=== PATIENT | male | born 1985 | race Caucasian/White ===

== ENCOUNTER 2020-11-02 08:29 | Inpatient (IN) | payer SELFPAY ==
[2020-11-02] MEDS ORDERED: ONDANSETRON 4 MG/2 ML VIAL IVPUSH ONE (08:43)
[2020-11-02] MEDS ORDERED: morphine CARPU-JECT 2 MG/1 ML DISP.SYRIN IVPUSH ONE (08:43)
[2020-11-02] MEDS ORDERED: morphine SULFATE 4 MG/ML VIAL IVPUSH ONE (08:43)
[2020-11-02] MEDS ORDERED: SODIUM CHLORIDE 1,000 ML IV STA (08:46)
[2020-11-02] MEDS ORDERED: ONDANSETRON 4 MG/2 ML VIAL ONE (08:51)
[2020-11-02] MEDS ORDERED: morphine SULFATE 4 MG/ML VIAL ONE (08:51)
[2020-11-02 10:36] LABS: BASO % 0.2 % (0-2.0); EOS % 0.3 % (0-4.5); HEMATOCRIT 42.1 % (35.4-49); HEMOGLOBIN 14.5 GM/dL (11.7-16.9); LYMPH % 11.5 % (8-40); MCH 29.2 pg (25.7-33.7); MCHC 34.5 g/dl (32.0-35.9); MEAN CELL VOLUME 84.5 fl (80-96); MEAN PLT VOLUME 8.4 fl (7.5-11.1); MONO % 6.7 % (3.8-10.2); NEUT % 81.3 % (42.8-82.8); PLATELET COUNT 260 K/MM3 (134-434); RBC 4.98 M/mm3 (4.00-5.60); RDW 13.2 % (11.9-15.9); WHITE BLOOD COUNT 15.6 K/mm3 (4.0-10.0)
[2020-11-02 11:11] LABS: POTASSIUM 4.4 mmol/L (3.5-5.1)
[2020-11-02 11:13] LABS: CALCIUM 8.7 mg/dL (8.5-10.1)
[2020-11-02 11:14] LABS: ALBUMIN 3.6 g/dl (3.4-5.0); BLOOD UREA NITROGEN 10.3 mg/dL (7-18)
[2020-11-02 11:17] LABS: CREATININE 1.1 mg/dL (0.55-1.3)
[2020-11-02 11:18] LABS: BILIRUBIN,TOTAL 0.8 mg/dL (0.2-1); TOT PROT 6.6 g/dl (6.4-8.2)
[2020-11-02 12:13] LABS: EPI CELLS 15 /uL (0-25.1); HYALINE CASTS 2 /uL (0-3.1); URINE APPEARANCE CLEAR; URINE BACTERIA 41 /uL (0-1359); URINE BILIRUBIN NEGATIVE (NEGATIVE); URINE COLOR ORANGE; URINE GLUCOSE (UA) NEGATIVE (NEGATIVE); URINE KETONE NEGATIVE (NEGATIVE); URINE LEUK ESTERASE TRACE (NEGATIVE); URINE NITRITE NEGATIVE (NEGATIVE); URINE PROTEIN TRACE (NEGATIVE); URINE RBC 586 /uL (0-23.9); URINE UROBILINOGEN 0.2 mg/dL (0.2-1.0); URINE WBC 59 /uL (0-25.8)
[2020-11-02] MEDS ORDERED: TAMSULOSIN HCL 0.4 MG CAP PO ONE (12:51)
[2020-11-02] MEDS ORDERED: CEFTRIAXONE 1 GM in DEXTROSE 5%-WATER - 100 ML IVPB ONE (12:51)
[2020-11-02] MEDS ORDERED: TAMSULOSIN HCL 0.4 MG CAP ONE (12:55)
[2020-11-02] MEDS ORDERED: CEFTRIAXONE 1 GM/50 ML BAG ONE (12:56)
[2020-11-02] MEDS ORDERED: SODIUM CHLORIDE 1,000 ML IV SCH (13:00)
[2020-11-02] MEDS ORDERED: MORPHINE SULFATE 2 MG/ML VIAL IVPUSH PRN (13:50)
[2020-11-02] MEDS ORDERED: ACETAMINOPHEN 1000 MG/100 ML VIAL (NON FORMULARY) IVPB PRN (13:51)
[2020-11-02 14:44] LABS: INR 1.11 (0.83-1.09); PROTHROMBIN TIME (PATIENT) 13.4 SEC (9.7-13.0)
[2020-11-02 14:47] LABS: ACTIVATED PTT 30.9 SECONDS (25.2-36.5)
[2020-11-02] MEDS ORDERED: NICOTINE 14 MG/24 HOURS TOPICAL PATCH TD SCH (21:45)
[2020-11-03 08:02] LABS: HEMATOCRIT 44.2 % (35.4-49); HEMOGLOBIN 15.1 GM/dL (11.7-16.9); MCH 29.1 pg (25.7-33.7); MCHC 34.1 g/dl (32.0-35.9); MEAN CELL VOLUME 85.4 fl (80-96); MEAN PLT VOLUME 8.4 fl (7.5-11.1); PLATELET COUNT 265 K/MM3 (134-434); RBC 5.18 M/mm3 (4.00-5.60); RDW 13.5 % (11.9-15.9); WHITE BLOOD COUNT 9.6 K/mm3 (4.0-10.0)
[2020-11-03 08:15] VITALS: BP 134/88; PULSE 90; TEMP 97.9
[2020-11-03] MEDS ORDERED: TAMSULOSIN HCL 0.4 MG CAP PO SCH (08:30)
[2020-11-03] MEDS ORDERED: TAMSULOSIN HCL 0.4 MG CAP ONE (08:31)
[2020-11-03 08:37] LABS: BLOOD UREA NITROGEN 7.1 mg/dL (7-18)
[2020-11-03 08:38] LABS: ALBUMIN 3.8 g/dl (3.4-5.0); CALCIUM 9.2 mg/dL (8.5-10.1)
[2020-11-03 08:39] LABS: MAGNESIUM 2.1 mg/dL (1.8-2.4)
[2020-11-03 08:41] LABS: CREATININE 0.8 mg/dL (0.55-1.3); PHOSPHOROUS 3.2 mg/dL (2.5-4.9)
[2020-11-03 08:42] LABS: BILIRUBIN,TOTAL 1.1 mg/dL (0.2-1); TOT PROT 6.9 g/dl (6.4-8.2)
[2020-11-03] MEDS ORDERED: FAMOTIDINE 20 MG/50 ML IVPB 20 MG/50 ML MG IVPB ONE (09:13)
[2020-11-03] MEDS ORDERED: METOCLOPRAMIDE HCL INJECTION 10 MG/2 ML VIAL ONE (09:13)
[2020-11-03] MEDS ORDERED: CEFTRIAXONE 1 GM in DEXTROSE 5%-WATER - 50 ML IVPB SCH (10:00)
[2020-11-03] MEDS ORDERED: DOCUSATE SODIUM 100 MG CAPSULE (FP) PO SCH (10:00)
== END 2020-11-03 09:45 | disposition left against medical advice (07) | DRG 465 ==
LOC: JER 08:29 → JERBED 13:16
PROVIDERS: ADMIT Internal Medicine; ATTEND Internal Medicine
DX: N13.2 Hydronephrosis with renal and ureteral calculous obstruction (principal); R11.2 Nausea with vomiting, unspecified; I10 Essential (primary) hypertension; K40.90 Unilateral inguinal hernia, without obstruction or gangrene, not specified as recurrent
CPT/HCPCS: 36415; 74176-TC; 76775-TC; 76856-TC; 80053; 81003; 83735; 84100; 85025; 85027; 85610; 85730; 86850; 86900; 86901; 87086; 99285-25; C9803; U0003

== ENCOUNTER 2021-02-01 11:59 | Emergency (ER) | payer SELFPAY ==
[2021-02-01] MEDS ORDERED: KETOROLAC TROMETHAMINE 30 MG/1 ML VIAL IVPUSH ONE (12:29)
[2021-02-01] MEDS ORDERED: SODIUM CHLORIDE 0.9% 500 ML INFUS.BAG IV ONE (12:29)
[2021-02-01] MEDS ORDERED: ONDANSETRON 4 MG/2 ML VIAL IVPUSH ONE (12:29)
[2021-02-01] MEDS ORDERED: ONDANSETRON 4 MG/2 ML VIAL ONE (12:52)
[2021-02-01] MEDS ORDERED: KETOROLAC TROMETHAMINE 30 MG/1 ML VIAL ONE (12:52)
[2021-02-01 13:21] LABS: BASO % 0.4 % (0-2.0); EOS % 2.6 % (0-4.5); HEMATOCRIT 46.7 % (35.4-49); HEMOGLOBIN 16.1 GM/dL (11.7-16.9); LYMPH % 26.2 % (8-40); MCH 29.1 pg (25.7-33.7); MCHC 34.5 g/dl (32.0-35.9); MEAN CELL VOLUME 84.2 fl (80-96); MEAN PLT VOLUME 8.3 fl (7.5-11.1); MONO % 7.5 % (3.8-10.2); NEUT % 63.3 % (42.8-82.8); PLATELET COUNT 286 K/MM3 (134-434); RBC 5.55 M/mm3 (4.00-5.60); RDW 13.1 % (11.9-15.9); WHITE BLOOD COUNT 10.2 K/mm3 (4.0-10.0)
[2021-02-01 13:40] LABS: POTASSIUM 5.5 mmol/L (3.5-5.1)
[2021-02-01 13:42] LABS: CALCIUM 9.7 mg/dL (8.5-10.1)
[2021-02-01 13:43] LABS: ALBUMIN 4.2 g/dl (3.4-5.0); BLOOD UREA NITROGEN 13.3 mg/dL (7-18)
[2021-02-01 13:46] LABS: CREATININE 1.2 mg/dL (0.55-1.3)
[2021-02-01 13:47] LABS: BILIRUBIN,TOTAL 0.9 mg/dL (0.2-1); TOT PROT 7.8 g/dl (6.4-8.2)
[2021-02-01 15:32] LABS: EPI CELLS 17 /uL (0-25.1); HYALINE CASTS 3 /uL (0-3.1); PH,URINE 5.5 (5.0-8.0); URINE APPEARANCE CLEAR; URINE BACTERIA 185 /uL (0-1359); URINE BILIRUBIN NEGATIVE (NEGATIVE); URINE COLOR YELLOW; URINE GLUCOSE (UA) NEGATIVE (NEGATIVE); URINE KETONE NEGATIVE (NEGATIVE); URINE LEUK ESTERASE TRACE (NEGATIVE); URINE NITRITE NEGATIVE (NEGATIVE); URINE PROTEIN NEGATIVE (NEGATIVE); URINE RBC 15 /uL (0-23.9); URINE UROBILINOGEN 0.2 mg/dL (0.2-1.0); URINE WBC 46 /uL (0-25.8)
[2021-02-01 17:01] VITALS: BP 128/78; PULSE 78; TEMP 98.5
== END 2021-02-01 17:01 | disposition home or self-care (01) ==
LOC: JER 11:59
PROC: 3E0333Z Introduction of Anti-inflammatory into Peripheral Vein, Percutaneous Approach (ICD-10-PCS; principal; 2021-02-01)
PROC: 3E033GC Introduction of Other Therapeutic Substance into Peripheral Vein, Percutaneous Approach (ICD-10-PCS; 2021-02-01)
DX: N20.0 Calculus of kidney (principal)
CPT/HCPCS: 36415; 74018-TC-FY; 74176-TC; 80053; 81003; 85025; 87086; 99284-25

== ENCOUNTER 2024-07-03 19:51 | Emergency (ER) | payer OTHER ==
[2024-07-03 20:16] VITALS: BP 155/94; PULSE 89; RESP 16; TEMP 98.6; BMI 25.0
[2024-07-03 20:42] LABS: HEMATOCRIT 49.4 % (35.4-49); HEMOGLOBIN 16.8 G/dL (11.7-16.9); MCH 29.6 pg (25.7-33.7); MEAN CELL VOLUME 86.9 fl (80-96); MEAN PLT VOLUME 8.1 fl (7.5-11.1); PLATELET COUNT 246.5 10^3/uL (134-434); RBC 5.68 10^6/uL (4.00-5.60); RDW 13.8 % (11.9-15.9); WHITE BLOOD COUNT 9.8 10^3/uL (4.0-10.8)
[2024-07-03 20:56] LABS: ALBUMIN 4.4 g/dl (3.4-5.0); BILIRUBIN,TOTAL 0.7 mg/dl (0.2-1); CALCIUM 9.7 mg/dl (8.5-10.1); POTASSIUM 3.7 mmol/L (3.5-5.1); TOT PROT 6.7 g/dl (6.4-8.2)
== END 2024-07-03 22:13 | disposition home or self-care (01) ==
LOC: FER 19:51
DX: R07.89 Other chest pain (principal); R05.9 Cough, unspecified
CPT/HCPCS: 36415; 71045-TC-FY; 80053; 82550; 84484; 85027; 93005; 99285-25

== ENCOUNTER 2025-05-17 19:19 | Inpatient (IN) | payer OTHER ==
[2025-05-17] MEDS ORDERED: ONDANSETRON 4 MG/2 ML VIAL ONE (19:40)
[2025-05-17] MEDS ORDERED: ACETAMINOPHEN INJECTION 100 ML ONE (19:40)
[2025-05-17 19:55] LABS: ABSOLUTE IMMATURE GRANULOCYTES 0.03 x10^3/uL (0.0-0.031); BASOPHILS # 0.02 x10^3/uL (0.01-0.08); EOSINOPHIL % 1.1 % (0.8-7.0); EOSINOPHILS # 0.18 x10^3/uL (0.04-0.54); HEMATOCRIT 47.2 % (40.1-51.0); HEMOGLOBIN 16.4 g/dL (13.7-17.5); MCHC 34.7 g/dl (32.3-36.5); MEAN CELL VOLUME 82.4 fl (79.0-92.2); MEAN PLT VOLUME 9.4 fl (9.4-12.4); MONOCYTE # 0.94 x10^3/uL (0.30-0.82); MONOCYTE % 5.8 % (5.3-12.2); PLATELET COUNT 316 x10^3/uL (163-337); RDW 12.3 % (12.0-15.6)
[2025-05-17] MEDS: ACETAMINOPHEN 1000 MG/100 ML BAG IVPB ONE (19:56)
[2025-05-17] MEDS: ONDANSETRON 4 MG/2 ML VIAL IVPUSH ONE (19:57)
[2025-05-17 20:16] LABS: ALBUMIN 4.6 g/dl (3.4-5.0); ALK PHOS 118 U/L (45-117); ANION GAP 10 mmol/L (4-13); BILIRUBIN,TOTAL 0.8 mg/dl (0.2-1); CALCIUM 9.4 mg/dl (8.5-10.1); CHLORIDE 100 mmol/L (98-107); CO2 25 mmol/L (21-32); CREATININE 0.8 mg/dl (0.6-1.3); GLUCOSE,RANDOM 119 mg/dl (74-106); POTASSIUM 4.2 mmol/L (3.5-5.1); SGOT/AST 34 U/L (15-37); SGPT/ALT 91 U/L (7-52); SODIUM 135 mmol/L (136-145); TOT PROT 7.1 g/dl (6.4-8.2)
[2025-05-17] MEDS: SODIUM CHLORIDE 0.9% 1000 ML INFUS.BAG IV ONE (20:53)
[2025-05-17 20:57] LABS: EPITHELIAL CELLS 0-5 /hpf
[2025-05-17] MEDS ORDERED: morphine SULFATE 4 MG/ML VIAL ONE (20:58)
[2025-05-17] MEDS ORDERED: PIPERACILLIN/TAZOBACTAM 4.5 GM VIAL IVPB ONE (22:43)
[2025-05-17] MEDS: PIPERACILLIN/TAZOB 4.5 GM 4.5 GM in DEXTROSE 5%-WATER 100 ML IVPB ONE (22:51)
[2025-05-17] MEDS ORDERED: DOCUSATE SODIUM 100 MG CAPSULE (FP) PO PRN (23:24)
[2025-05-17 23:47] LABS: INR 0.99 (0.83-1.09)
[2025-05-17 23:50] LABS: ACTIVATED PTT 32.2 SECONDS (25.2-36.5)
[2025-05-18] MEDS: ceFAZolin SODIUM 1 GM VIAL IVPB ONE
[2025-05-18] MEDS ORDERED: ONDANSETRON 4 MG/2 ML VIAL IVPUSH PRN ×4 (02:00→11:25)
[2025-05-18] MEDS ORDERED: ACETAMINOPHEN 1000 MG/100 ML BAG IVPB PRN (02:00)
[2025-05-18] MEDS: DEXTROSE 5%-NORMAL SALINE 1,000 ML IV SCH (02:18)
[2025-05-18] MEDS ORDERED: PIPERACILLIN/TAZOBACTAM 3.375 GM VIAL IVPB ONE (03:37)
[2025-05-18] MEDS: PIPERACILLIN/TAZOB 3.375 GM 3.375 GM in DEXTROSE 5%-WATER - 50 ML IVPB SCH ×3 (03:50→14:49)
[2025-05-18 05:42] VITALS: BMI 27.6
[2025-05-18] MEDS ORDERED: PIPERACILLIN/TAZOB 3.375 GM 3.375 GM in DEXTROSE 5%-WATER - 50 ML IVPB SCH (06:00)
[2025-05-18] MEDS ORDERED: PROPOFOL 20 ML ONE (08:30)
[2025-05-18] MEDS ORDERED: ROCURONIUM BROMIDE 50 MG/5 ML SYRINGE ONE (08:30)
[2025-05-18] MEDS ORDERED: MIDAZOLAM HCL 2 MG/2 ML SINGLE DOSE VIAL ONE (08:31)
[2025-05-18] MEDS ORDERED: oxyCODONE HCL 5 MG TABLET PO PRN (08:48)
[2025-05-18] MEDS ORDERED: LIDOCAINE HCL/PF 2% SDV 5ML VIAL ONE (09:59)
[2025-05-18] MEDS: BUPIVACAINE HCL/PF 0.25% (2.5MG/ML) 10 ML VIAL IJ ONE ×2 (10:20)
[2025-05-18] MEDS ORDERED: ONDANSETRON 4 MG/2 ML VIAL ONE (10:45)
[2025-05-18] MEDS ORDERED: SUGAMMADEX SODIUM 200 MG/2 ML VIAL ONE (10:45)
[2025-05-18] MEDS: LACTATED RINGERS SOLUTION 1,000 ML IV SCH ×2 (11:26→11:32)
[2025-05-18] MEDS: oxyCODONE HCL 5 MG TABLET PO PRN (13:36)
[2025-05-18 14:05] VITALS: RESP 18
[2025-05-18] MEDS ORDERED: SIMETHICONE 40 MG/0.6 ML BOTTLE PO PRN (15:34)
[2025-05-18] MEDS: MAGNESIUM HYDROX 2400MG/30ML ORAL SUSPENSION 30 ML CUP PO PRN (16:31)
[2025-05-18] MEDS: KETOROLAC TROMETHAMINE 15 MG/ML VIAL IVPUSH SCH (16:31)
[2025-05-18] MEDS ORDERED: MAG HYDROX/AL HYDROX/SIMETH 30 ML UNIT-DOSE CUP PO PRN (17:38)
[2025-05-18] MEDS: ACETAMINOPHEN 1000 MG/100 ML BAG IVPB SCH (20:55)
[2025-05-18] MEDS: DOCUSATE SODIUM 100 MG CAPSULE (FP) PO PRN (21:55)
[2025-05-19 13:53] VITALS: BP 119/82; PULSE 85; TEMP 98.1
== END 2025-05-19 15:07 | disposition home or self-care (01) | DRG 225 ==
LOC: FER 19:19 → J7W 05-18 05:05
PROVIDERS: ADMIT Internal Medicine; ATTEND Internal Medicine
PROC: 0DTJ4ZZ Resection of Appendix, Percutaneous Endoscopic Approach (ICD-10-PCS; principal; 2025-05-18 10:30)
DX: K35.80 Unspecified acute appendicitis (principal); I10 Essential (primary) hypertension; F17.210 Nicotine dependence, cigarettes, uncomplicated; D72.829 Elevated white blood cell count, unspecified
CPT/HCPCS: 36415; 74176-TC; 76705-TC; 76775-TC; 80053; 81003; 81015; 85025; 85610; 85730; 86850; 86900; 86901; 87086; 88304-TC; 93005; 94010; 94760; 99285-25